=== PATIENT | male | born 1985 | race Two or more races ===

== ENCOUNTER 2020-02-09 05:08 | Inpatient (IN) | payer OTHER ==
[2020-02-09] VITALS (14 sets, daily range): BP systolic 112–158; BP diastolic 44–86
[~2020-02-09] VITALS: Ht 172.7 cm; Wt 104.3 kg
[2020-02-09] MEDS ORDERED: fentaNYL 100 mcg/2 mL IV ONE (06:29)
[2020-02-09] MEDS ORDERED: Midazolam 2mg/2ml Inj ONE (06:29)
[2020-02-09] MEDS ORDERED: Lidocaine 1% MPF 10mg/ml 5ml ONE (06:32)
[2020-02-09] MEDS ORDERED: Phenylephrine 10mg/ml Vial ONE (06:33)
[2020-02-09] MEDS ORDERED: Vancomycin 1gm vial IVPB ONE (06:36)
[2020-02-09] MEDS ORDERED: Thrombin 5000 units TOPIC ONE (06:37)
[2020-02-09] MEDS ORDERED: Gelfoam Size TOPIC ONE (06:37)
[2020-02-09] MEDS ORDERED: Rocuronium Bromide 50mg/5ml Inj IV ONE (06:38)
[2020-02-09] MEDS ORDERED: Succinylcholine 20mg/ml 10ml vial ONE (06:38)
[2020-02-09] MEDS ORDERED: Bacitracin 50000 Units Vial ONE (06:38)
[2020-02-09] MEDS ORDERED: NS Irrig 1000ml ONE (07:00)
[2020-02-09] MEDS ORDERED: ceFAZolin sod 2 GM in NS 55 ML IVPB ONE (07:00)
[2020-02-09] MEDS ORDERED: propofoL 1,000mg/100ml IV ONE (07:00)
[2020-02-09] MEDS ORDERED: Acetaminophen (Non formulary) 100 ML IV ONE (07:00)
[2020-02-09] MEDS ORDERED: LR 1000ml ONE (07:00)
[2020-02-09] MEDS ORDERED: Sterile Water Irrig 1000ml IRRIG ONE (07:00)
--- NOTE | 2020-02-09 07:18 | Pre-Procedure Note/Attestation ---
Pre-Procedure Note/Attestation Complete Prior to Procedure Planned Procedure: not applicable Procedure Narrative: cervical 56 artificial disc replacement Indications for Procedure Pre-Operative Diagnosis: C56 herniation Attestation I attest that I discussed the nature of the procedure; its benefits; risks and complications; and alternatives (and the risks and benefits of such alternatives ), prior to the procedure, with the patient (or the patient's legal termite control service representative). I attest that, if there was a reasonable possibility of needing a blood transfusion, the patient (or the patient's legal termite control service representative) was given the [facility] standardized written summary, pursuant to the [place] Blood Safety Act ([place] Health and Safety Code # 1645, as amended). I attest that I re-evaluated the patient just prior to the surgery and that there has been no change in the patient's H&P, except as documented below: Kilo Hurd MD Feb 09, 2020 07:18
--- NOTE | 2020-02-09 07:19 | Brief Operative Note ---
Immediate Post Operative Note Operative Note Chief Complaint: nekc Pre-op Diagnosis: C56 herniation Procedure: cervical 56 artificial disc replacement Post-op Diagnosis: same as pre-op Findings: consistent w/pre-op dx studies Surgeon: Vickey Senior Project Accountant: Jania Anesthesiologist: LUIS M Anesthesia: general Specimen: none Complications: none Condition: stable Fluids: IVF Estimated Blood Loss: minimal Drains: none Implant(s) used?: Yes - Prodisc c sz 5 Kilo Hurd MD Feb 09, 2020 07:19
[2020-02-09] MEDS ORDERED: HYDROmorphone 1mg/ml Carpuject IVP PRN (07:30)
[2020-02-09] MEDS ORDERED: Milk of Magnesia 30ml Ud ORAL PRN (07:30)
[2020-02-09] MEDS ORDERED: Naloxone 0.4mg/ml Inj IVP PRN (07:30)
[2020-02-09] MEDS ORDERED: Morphine Sulfate 4mg/ml Inj (IV USE ONLY) IV PRN ×2 (07:30)
[2020-02-09] MEDS ORDERED: Chloraseptic Spray 20mL Bottle ORAL PRN (07:30)
[2020-02-09] MEDS ORDERED: Morphine Sulfate 2mg/ml Inj(IV/IM USE ONLY) IV PRN (07:30)
[2020-02-09] MEDS ORDERED: HYDROcodone/Acetamin 7.5/325 tab ORAL PRN ×2 (07:30)
[2020-02-09] MEDS ORDERED: Metoclopramide 10mg/2ml Inj IVP PRN ×2 (07:30→08:30)
[2020-02-09] MEDS ORDERED: HYDROcodone/Acetamin 5/325 tab ORAL PRN (07:30)
[2020-02-09] MEDS ORDERED: Morphine Sulfate 10mg/ml Inj ONE (08:09)
[2020-02-09] MEDS ORDERED: Glycopyrrolate 0.2mg/ml 1ml Vial ONE (08:10)
[2020-02-09] MEDS ORDERED: Neostigmine 1mg/ml 10ml Inj ONE (08:10)
[2020-02-09] MEDS ORDERED: Sodium Chloride 10ml vial INJ ONE (08:10)
--- NOTE | 2020-02-09 08:27 | Anethesia Preoperative Eval ---
Anesthesia Pre-op PMH/ROS General Date of Evaluation: Feb 09, 2020 Time of Evaluation: 07:00 Anesthesiologist: Richie ASA Score: ASA 2 Mallampati Score Class I : Soft palate, uvula, fauces, pillars visible Class II: Soft palate, uvula, fauces visible Class III: Soft palate, base of uvula visible Class IV: Only hard plate visible Mallampati Classification: Class II Surgeon: Vickey Diagnosis: Cervical radiculopathy Surgical Procedure: ACDF Anesthesia History: none Family History: no anesthesia problems Allergies: Coded Allergies: No Known Allergies (Unverified , 02/08/20) Medications: see eMAR Patient NPO?: Yes Past Medical History Cardiovascular: Denies: HTN, CAD, OR, valve dz, arrhythmia, other Pulmonary: Denies: asthma, COPD, ROYA, other Gastrointestinal/Genitourinary: Reports: GERD - mild; Denies: CRI, ESRD, other Neurologic/Psychiatric: Reports: other - chronic pain; Denies: dementia, CVA, depression/anxiety, TIA Endocrine: Denies: DM, hypothyroidism, steroids, other HEENT: Denies: cataract (L), cataract (R), glaucoma, [place] other Hematology/Immune: Denies: anemia, DVT, bleeding disorder, other Musculoskeletal/Integumentary: Denies: OA, RA, DJD, DDD, edema, other PMH Narrative: as above PSxH Narrative: see H&P Anesthesia Pre-op Phys. Exam Physician Exam Last Vital Signs Date Time Temp Pulse Resp B/P (MAP) Pulse Ox O2 Delivery O2 Flow Rate FiO2 02/09/20 06:02 Room Air 02/09/20 05:39 97.7 76 18 158/75 (102) 98 Constitutional: NAD Neurologic: CN 2-12 intact Cardiovascular: RRR, no M/R/G Respiratory: CTA Gastrointestinal: S/NT/ND Airway Exam Mallampati Score: Class II MO: full Neck: stiff ROM: limited Teeth: intact Dentures: no upper, no lower Anesthesia Pre-op A/P Labs see chart Studies Pre-op Studies: EKG - NSR Risk Assessment & Plan Assessment: ASA 2 Plan: GA with ETT, neuromonitoring Status Change Before Surgery: No Pre-Antibiotics Drug: Ancef 2gr Given Within 1 Hr of Incision: Yes Time Given: 07:56 Felipe Quiroz MD Feb 09, 2020 08:27
[2020-02-09] MEDS ORDERED: DiphenhydrAMINE 50mg/ml Inj IVP PRN (08:30)
[2020-02-09] MEDS ORDERED: Ketorolac 30mg Inj IV PRN (08:30)
[2020-02-09] MEDS ORDERED: Meperidine 25mg/1ml Inj (FOR RIGORS ONLY) IV PRN (08:30)
[2020-02-09] MEDS ORDERED: LR 1000ml 1,000 ML IVLG SCH (08:30)
[2020-02-09] MEDS ORDERED: Docusate 100mg cap ORAL SCH (09:00)
--- NOTE | 2020-02-09 09:34 | Immediate Post-Op Evaluation ---
Immediate Post-Op Evalulation Immediate Post-Op Evalulation Procedure: ACDF C5-C6 Date of Evaluation: Feb 09, 2020 Time of Evaluation: 09:33 IV Fluids: 1000 Blood Products: none Estimated Blood Loss: 50 Urinary Output: 50 Blood Pressure Systolic: 125 Blood Pressure Diastolic: 53 Pulse Rate: 88 Respiratory Rate: 20 O2 Sat by Pulse Oximetry: 99 Temperature (Fahrenheit): 97.6 Pain Score (1-10): 1 Nausea: No Vomiting: No Complications none Patient Status: reacts, patent, extubated, none Hydration Status: adequate Felipe Quiroz MD Feb 09, 2020 09:34
--- NOTE | 2020-02-09 10:36 | 48 Hour Post Anesthesia Eval ---
Post Anesthesia Evaluation Procedure: ACDF C5-C6 Date of Evaluation: Feb 09, 2020 Time of Evaluation: 10:34 Blood Pressure Systolic: 137 0: 72 Pulse Rate: 74 Respiratory Rate: 18 Temperature (Fahrenheit): 97.6 O2 Sat by Pulse Oximetry: 98 Airway: patent Nausea: No Vomiting: No Pain Intensity: 3 Hydration Status: adequate Cardiopulmonary Status: stable Mental Status/LOC: patient returned to baseline Follow-up Care/Observations: n/a Post-Anesthesia Complications: none Follow-up care needed: ready to discharge Felipe Quiroz MD Feb 09, 2020 10:35
--- NOTE | 2020-02-09 11:04 | NUR ---
NURSE NOTES: Received report from Arabella RN, pt a/a/o laying in bed with no signs of distress or other issues. surgical dressing dry and intact. SCD's in place. RN will review orders and will carry on as indicated. call light within reach, bed in lowest position. side rales up x2. I will f/u as needed.
[2020-02-09] MEDS ORDERED: NS w/KCl 20mEq 1000ml 1,000 ML IV SCH (12:00)
--- NOTE | 2020-02-09 13:19 | Diagnostic Imaging Report ---
INDICATION: Pain, intraoperative TECHNIQUE: Intraoperative imaging Fluoroscopy time: 39.2 seconds Total dose: 0.62022 mGym2 Total number of images: 4 COMPARISON: None FINDINGS: Intraoperative images document surgical tool anterior to C5-6. Subsequent demonstrate placement of a disc prosthesis at C5-6. IMPRESSION: Intraoperative imaging, as described
--- NOTE | 2020-02-09 13:26 | NUR ---
NURSE NOTES: Patient voided 525 ml yellow urine. Will continue to monitor.
--- NOTE | 2020-02-09 13:30 | NUR ---
PT EVALUATION NOTE Patient seen for initial evaluation and treatment initiated. Patient instructed in cervical precautions and log roll technique for in/OOB. Patient able to perform bed mobility with supervision/SBA using proper log roll technique. Patient able to transfer with SBA, no AD, and able to ambulate 150 ft with SBA, no AD. Patient denied dizziness with all OOB activities. Patient will benefit from skilled inpatient PT intervention to increase postural stability for improved level of functional mobility and for adherence to cervical precautions. Anticipate discharge home once medically cleared by MD. No DME needs identified at this time. Addendum: 02/09/20 at 1354 by PAM ABDULLAHI PT Amended: Links added.
--- NOTE | 2020-02-09 13:30 | NUR ---
NURSE NOTES: called and left message to Dr. Hurd to give up date of the patient status as well as to inform that the patient requested to go home today. awaiting for response.
[2020-02-09] MEDS ORDERED: ceFAZolin sod 1 GM in D5W 55 ML IV SCH (14:00)
--- NOTE | 2020-02-09 15:03 | NUR ---
NURSE NOTES: Spoke to regarding patient and ok to discharge today. Order noted and carried out.
[2020-02-09] MEDS ORDERED: NORCO 10-325 T1 EACH ORAL (15:45)
--- NOTE | 2020-02-09 16:10 | NUR ---
NURSE NOTES: Patient discharged with family member in stable condition. Discharge instruction given to patient and verbalized understanding. Belonging and discharge prescription given to patient. IV and ID removed. Instructed to follow up with MD and verbalized understanding. Patient ambulated out with all personal belongings with steady gait.
--- NOTE | 2020-02-09 17:15 | Operative Note - Dictated ---
DATE OF OPERATION: 02/09/2020 SURGEON: Kilo Hurd MD, Orthopaedic Spine Surgeon. NURSERY HAND: Kinza ERLIN PREOPERATIVE DIAGNOSES: 1. Intractable neck pain. 2. Radiculopathy. 3. Herniation, C5-C6. 4. Neuroforaminal stenosis, C5-C6. 5. Stenosis. POSTOPERATIVE DIAGNOSES: 1. Intractable neck pain. 2. Radiculopathy. 3. Herniation, C5-C6. 4. Neuroforaminal stenosis, C5-C6. 5. Stenosis. PROCEDURE PERFORMED: 1. Anterior cervical diskectomy and artificial disc replacement of C5-C6 using a Synthes ProDisc C size 5 height. 2. Use of intraoperative microscope. 3. Motor-evoked potential monitoring. 4. Somatosensory-evoked potential monitoring. 5. Supervision and interpretation of fluoroscopy. COMPLICATIONS: None. ANESTHESIA: General. ESTIMATED BLOOD LOSS: Less than 100 mL. INDICATIONS FOR SURGERY: This patient is a 34-year-old male who has a history of . As a result of this, Trell sustained intractable neck pain, radiculopathy, herniation at C5-C6, neuroforaminal stenosis at C5-C6, and stenosis. We tried a course of conservative management, but despite this course, there was still a significant component of persistent, recalcitrant neck pain and arm pain. The MRI demonstrated significant neuroforaminal compromise secondary to disc herniations at C5-C6. We had a long discussion with Trell regarding the risks and benefits of surgery. Our discussion included, but was not limited to nonoperative management, chiropractic management, another epidural steroid injection as well as definitive management in the form of surgery. We recommended an anterior cervical diskectomy and artificial disc replacement of C5-C6 as final definitive management. We reviewed the risks and benefits of surgery with Trell. Our discussion included a comprehensive review of the clinical issues and the nature of the clinical decision. We reviewed the alternatives, including doing nothing. Trell elected to proceed accordingly with anterior cervical diskectomy and artificial disc replacement of C5-C6. We had a long discussion regarding the risks, alternatives, and benefits of surgery. Our description of the risks included a discussion in person as well as a signed consent, which detailed all pertinent risks from the procedure itself. Briefly, our discussion included but was not limited to infection, bleeding, pseudarthrosis, spinal cord injury, neurovascular injury, dural tear, CSF leak, neuropathy, paralysis, permanent weakness/drop foot/drop arm, paresthesias, blindness, palsy, and weakness. The patient understood there may be a need for a revision surgery or additional procedures. Approach-related complications including dysphonia, dysphagia, blindness, permanent vocal cord and neural injury, hematoma, swallowing and breathing difficulty. Medical complications were reviewed including liver, kidney, shock, cardiopulmonary failure, anesthesia complications including , swelling, damage to the musculature, larynx/voice injury or loss, esophagus/throat, trachea, blood vessels and muscles/muscular sprain and lungs/pneumothorax during this surgical procedure; injury to deeper structures may be temporary or permanent. After this review of risks, Trell understood these and elected to proceed. A written and verbal consent was given. We discussed the pros and cons of all the alternatives. We discussed the uncertainties associated with the decision. Afterwards, I assessed Trell's understanding and explored his preferences. All questions were answered and no guarantees were given. Medical clearance was obtained prior to surgery. INTRAOPERATIVE FINDINGS: At C5-C6, there was a large tear in the posterior longitudinal ligament, right-sided, approximately 10 degrees cephalad to caudad. This was probed with a Microsect 1-B curette and found to produce the meeting edge along the posterior limb of a herniated fragment, which was encroaching on the thecal sac, foramina, and spinal cord predominantly right-sided. This fragment was large, soft, and not calcified or crumbled and appeared acute in nature. Given that there was a tear in the posterior longitudinal ligament, I also felt that this could be attributed to a trauma. Given the fact that it was not calcified and the tissue itself was soft and spongy, I felt that it could be attributed to an acute trauma. A complete foraminotomy was performed on the right side and afterward the left side in standard fashion without any difficulty . The remainder of the disk itself was soft and spongy; not dehydrated, dried, or calcified. DESCRIPTION OF PROCEDURE: Under the benefit of general endotracheal anesthesia and with the assistance of the entire operative team, the patient was moved from the rsan antonio onto the operative table in the supine position. The head was secured and carefully positioned appropriately. Bilateral arms were secured with Gel Pads and foam, and all bony prominences were padded. For the bilateral lower extremities, SCD and WILIAN hose were placed for DVT prophylaxis. A surgical timeout was called, which corroborated our planned procedure of artificial disc replacement of cervical C5-C6 and anterior cervical discectomy and fusion of cervical C5-C6. Preoperative antibiotics were administered within 30 minutes of the incision for antibiotic prophylaxis. Using lateral fluoroscopic radiography, the operative levels were delineated. Next, the wound was prepped and draped with chlorhexidine and sterile drapes. An incision was based on lateral fluoroscopy and we centered our incision at the C5-C6 interspace and next, using a standard French-Obrien anterior-based approach, the incision was taken down through the skin and subcutaneous tissues until the vertebral bodies and their corresponding disc spaces were visualized. A needle was placed into the interspace to confirm placement of the operative interspace and we performed the remainder of procedure under microscopic visualization. Next, using bipolar and Bovie cautery to ensure meticulous hemostasis, the longus colli was mobilized bilaterally and retractors were placed deep to the longus colli bilaterally to address retraction. Next, we turned our attention to the radical anterior discectomy. This was initially performed at C5-C6 first by using a 15 blade scalpel followed by narrow pituitaries and a Microsect 5-B curette was used to denude the endplate of all cartilaginous tissue. Next, using a [employer] AM8 drill bit, the vertebral endplates were denuded of all residual cartilage in a ireh-kn-uhpu and cjtaz-vy-gywmv fashion, and ultimately the posterior uncinate joints bilaterally and posterior osteophytic lips and margins were carefully denuded until clear visualization of the posterior longitudinal ligament was possible. An endplate preparation was performed in the exact same fashion. Using an intervertebral sql report analyst, sequential distraction was obtained throughout the disc space. We saw a tear/rent in the PLL and this was carefully mobilized and dissected using a Microsect 1-B curette until we visualized a discrete disc herniation with compression of the spinal cord as well as neural foramina, which was right more than left sided. This neural foraminal compression was carefully resected using a Kerrison-1 and Kerrison-2 rongeurs until complete decompression of the spinal cord was visualized and complete decompression of the neural foramina and nerve root therein as well as the axilla and lateral margin of the nerve root was visualized and subsequently completely decompressed. The family was notified at one-hour intervals throughout the procedure to provide for consistent updates. We next turned our attention towards trialing our implant within the disc space. We initially tried size 5 and this ProDisc Cervical spacer fit well in regard to depth and width. This implant was opened and prepared. Next, under direct visualization, I confirmed excellent fit in respect to the anterior and posterior vertebral bodies, the uncinate joints, and in regard to toggle. Once satisfied with this placement on serial AP and lateral fluoroscopy, I turned my attention towards cutting our simón. These were cut in the bones using a reciprocating drill and afterwards all free fragments of bone were irrigated. Next, FloSeal was placed into the interspace, then removed in its entirety, and the implant was inserted using fluoroscopic guidance. Next, the Synthes ProDisc C size 5 ADR was then carefully advanced and secured into the intervertebral space under direct visualization and with supervision of AP and lateral fluoroscopic views. After a finger sweep, we confirmed removal of all sponges. The retractor was removed and we next turned our attention to meticulous hemostasis with FloSeal and bipolar cautery. After the sponge and needle count was again found to be correct with our second count, we next turned our attention to closure. The wound was again copiously irrigated with antibiotic-impregnated saline. Closure consisted of 4-0 clear nylon for the platysma, and 6-0 clear nylon for the superficial skin. Final skin closure and dressings consisted of Dermabond. Prior to final closure, a final radiograph was obtained, which demonstrated the hardware was intact with excellent position throughout. The patient tolerated the procedure well. The patient was carefully extubated after the conclusion of surgery. We discussed the findings of the surgery with the family upon completion of the case. At this point, the patient was transferred to the spine floor for further observation. Kilo Hurd M.D. DR: CORBY JOB#: [id number] CC:
== END 2020-02-09 16:10 | disposition home or self-care (01) | DRG 518 ==
LOC: SDSOVERFLO 05:08 → 3E 11:00
PROC: 0RR30JZ Replacement of Cervical Vertebral Disc with Synthetic Substitute, Open Approach (ICD-10-PCS; principal; 2020-02-09 07:00)
DX: M50.122 Cervical disc disorder at C5-C6 level with radiculopathy (principal); M48.02 Spinal stenosis, cervical region; V89.2XXS Person injured in unspecified motor-vehicle accident, traffic, sequela
CPT/HCPCS: 36415; 72040; 76000; 86850; 86900; 86901; 87081; J2180; J2250; J2370; J2405; J2710; U0002

== ENCOUNTER 2020-03-17 05:29 | Inpatient (IN) | payer OTHER ==
[~2020-03-17] VITALS: Ht 172.7 cm; Wt 102.1 kg
[2020-03-17] VITALS (13 sets, daily range): BP systolic 102–144; BP diastolic 62–90
[~2020-03-17 05:29] MED LIST: CARISOPRODOL350 MG ORAL; NORCO 10-325 T1 EACH ORAL
[2020-03-17] MEDS ORDERED: Vancomycin 1gm vial IVPB ONE (06:41)
[2020-03-17] MEDS ORDERED: Bacitracin 50000 Units Vial ONE (06:42)
[2020-03-17] MEDS ORDERED: Gelfoam Size TOPIC ONE (06:42)
[2020-03-17] MEDS ORDERED: Thrombin 5000 units TOPIC ONE (06:42)
[2020-03-17] MEDS ORDERED: Ropivacaine 5mg/ml Vial 30ml INJ ONE (06:42)
--- NOTE | 2020-03-17 06:44 | Anethesia Preoperative Eval ---
Anesthesia Pre-op PMH/ROS General Date of Evaluation: Mar 17, 2020 Time of Evaluation: 06:56 Anesthesiologist: Priscila ASA Score: ASA 2 Mallampati Score Class I : Soft palate, uvula, fauces, pillars visible Class II: Soft palate, uvula, fauces visible Class III: Soft palate, base of uvula visible Class IV: Only hard plate visible Mallampati Classification: Class II Surgeon: Vickey Diagnosis: Back Pain Surgical Procedure: L4-5 Microdiscectomy Anesthesia History: none Family History: no anesthesia problems Allergies: Coded Allergies: No Known Allergies (Unverified , 03/16/20) Medications: see eMAR Patient NPO?: Yes Past Medical History Gastrointestinal/Genitourinary: Reports: GERD Other: obesity - BMI 36 PSxH Narrative: Jan 2020, Cervical Sx Anesthesia Pre-op Phys. Exam Physician Exam Last Vital Signs Date Time Temp Pulse Resp B/P (MAP) Pulse Ox O2 Delivery O2 Flow Rate FiO2 03/17/20 06:11 Room Air 03/17/20 06:10 96.7 58 18 136/77 (96) 98 Constitutional: NAD Neurologic: CN 2-12 intact Cardiovascular: RRR Respiratory: CTA Gastrointestinal: S/NT/ND Airway Exam Mallampati Score: Class II MO: full ROM: limited Teeth: intact Anesthesia Pre-op A/P Risk Assessment & Plan Assessment: ASA 2 Plan: GA, SED, GlideScope Status Change Before Surgery: No Pre-Antibiotics Dru Grams Ancef IV Given Within 1 Hr of Incision: Yes Time Given: 07:16 Kvng Francois MD Mar 17, 2020 06:44
[2020-03-17] MEDS ORDERED: Meperidine 25mg/1ml Inj (FOR RIGORS ONLY) IV PRN (06:45)
[2020-03-17] MEDS ORDERED: Hydromorphone 0.5mg/0.5ml inj IVP PRN (06:45)
[2020-03-17] MEDS ORDERED: HYDROcodone/Acetamin 7.5/325 tab ORAL PRN ×3 (06:45→11:00)
[2020-03-17] MEDS ORDERED: LR 1000ml 1,000 ML IVLG SCH (06:45)
[2020-03-17] MEDS ORDERED: Atropine Sulfate 0.4mg/ml inj IVP PRN (06:45)
[2020-03-17] MEDS ORDERED: oxyCODONE HCL/Acetaminophen 5/325mg ORAL PRN (06:45)
[2020-03-17] MEDS ORDERED: DiphenhydrAMINE 50mg/ml Inj IVP PRN (06:45)
[2020-03-17] MEDS ORDERED: Midazolam 2mg/2ml Inj IVP PRN (06:45)
[2020-03-17] MEDS ORDERED: Ketorolac 30mg Inj IV PRN ×2 (06:45)
[2020-03-17] MEDS ORDERED: fentaNYL 100 mcg/2 mL IV PRN (06:45)
[2020-03-17] MEDS ORDERED: Metoclopramide 10mg/2ml Inj IVP PRN ×2 (06:45→11:00)
[2020-03-17] MEDS ORDERED: LORazepam Inj 2mg/ml 1ml IV PRN (06:45)
[2020-03-17] MEDS ORDERED: HYDROcodone/Acetamin 5/325 tab ORAL PRN ×2 (06:45→11:00)
[2020-03-17] MEDS ORDERED: Acetaminophen (Non formulary) 100 ML IV ONE (06:45)
[2020-03-17] MEDS ORDERED: Labetalol 5mg/ml 20ml vial IV PRN (06:45)
[2020-03-17] MEDS ORDERED: Rocuronium Bromide 50mg/5ml Inj IV ONE (06:50)
[2020-03-17] MEDS ORDERED: Lidocaine 1% MPF 10mg/ml 5ml ONE (06:59)
[2020-03-17] MEDS ORDERED: Sodium Chloride 10ml vial INJ ONE (06:59)
[2020-03-17] MEDS ORDERED: NS Irrig 1000ml ONE (07:00)
[2020-03-17] MEDS ORDERED: Sterile Water Irrig 1000ml IRRIG ONE (07:00)
[2020-03-17] MEDS ORDERED: LR 1000ml ONE (07:00)
[2020-03-17] MEDS ORDERED: propofoL 1,000mg/100ml IV ONE (07:00)
[2020-03-17] MEDS ORDERED: ceFAZolin sod 2 GM in NS 55 ML IVPB ONE (07:00)
[2020-03-17] MEDS ORDERED: Lidocaine 1% Plain 30 ml INJ ONE (07:04)
--- NOTE | 2020-03-17 07:15 | Pre-Procedure Note/Attestation ---
Pre-Procedure Note/Attestation Complete Prior to Procedure Planned Procedure: not applicable Procedure Narrative: Hemilaminotomy foraminotomy Lumbar 5-S1 and left sided microdiscectomy Indications for Procedure Pre-Operative Diagnosis: L5S1 herniation Attestation I attest that I discussed the nature of the procedure; its benefits; risks and complications; and alternatives (and the risks and benefits of such alternatives), prior to the procedure, with the patient (or the patient's legal volunteer patient representative). I attest that, if there was a reasonable possibility of needing a blood transfusion, the patient (or the patient's legal volunteer patient representative) was given the [facility] standardized written summary, pursuant to the [place] Blood Safety Act ([place] Health and Safety Code # 1645, as amended). I attest that I re-evaluated the patient just prior to the surgery and that there has been no change in the patient's H&P, except as documented below: Kilo Hurd MD Mar 17, 2020 07:15
--- NOTE | 2020-03-17 07:16 | Brief Operative Note ---
Immediate Post Operative Note Operative Note Chief Complaint: low back pain and leg pain Pre-op Diagnosis: L5S1 herniation Procedure: Hemilaminotomy foraminotomy Lumbar 5-S1 and left sided microdiscectomy Post-op Diagnosis: same as pre-op Findings: consistent w/pre-op dx studies Surgeon: Vickey Social Security Assessor: Jania Anesthesia: general Specimen: none Complications: none Condition: stable Fluids: IVF Estimated Blood Loss: minimal Drains: none Implant(s) used?: No Kilo Hurd MD Mar 17, 2020 07:16
--- NOTE | 2020-03-17 08:08 | Immediate Post-Op Evaluation ---
Immediate Post-Op Evalulation Immediate Post-Op Evalulation Procedure: L4-5 Microdiscectomy Date of Evaluation: Mar 17, 2020 Time of Evaluation: 09:14 IV Fluids: 800 LR Blood Products: 0 Estimated Blood Loss: 25 Urinary Output: 200 Blood Pressure Systolic: 144 Blood Pressure Diastolic: 71 Pulse Rate: 81 Respiratory Rate: 18 O2 Sat by Pulse Oximetry: 100 Temperature (Fahrenheit): 97.1 Pain Score (1-10): 2 Nausea: No Vomiting: No Complications 0 Patient Status: awake, reacts, patent, extubated, none Hydration Status: adequate Dru Grams Ancef IV Given Within 1 Hr of Incision: Yes Time Given: 07:16 Kvng Francois MD Mar 17, 2020 08:08
--- NOTE | 2020-03-17 08:09 | 48 Hour Post Anesthesia Eval ---
Post Anesthesia Evaluation Procedure: L4-5 Microdiscectomy Date of Evaluation: Mar 17, 2020 Time of Evaluation: 11:23 Blood Pressure Systolic: 126 0: 72 Pulse Rate: 73 Respiratory Rate: 18 Temperature (Fahrenheit): 98 O2 Sat by Pulse Oximetry: 99 Airway: patent Nausea: No Vomiting: No Pain Intensity: 2 Hydration Status: adequate Cardiopulmonary Status: Stable Follow-up Care/Observations: 0 Post-Anesthesia Complications: 0 Follow-up care needed: ready to discharge Kvng Francois MD Mar 17, 2020 08:09
[2020-03-17] MEDS ORDERED: Neostigmine 1mg/ml 10ml Inj ONE (08:22)
[2020-03-17] MEDS ORDERED: Glycopyrrolate 0.2mg/ml 1ml Vial ONE (08:22)
[2020-03-17] MEDS ORDERED: Naloxone 0.4mg/ml Inj IVP PRN (11:00)
[2020-03-17] MEDS ORDERED: Morphine Sulfate 2mg/ml Inj(IV/IM USE ONLY) IV PRN (11:00)
[2020-03-17] MEDS ORDERED: HYDROmorphone 1mg/ml Carpuject IVP PRN (11:00)
[2020-03-17] MEDS ORDERED: Morphine Sulfate 4mg/ml Inj (IV USE ONLY) IV PRN ×2 (11:00)
[2020-03-17] MEDS ORDERED: Milk of Magnesia 30ml Ud ORAL PRN (11:00)
[2020-03-17] MEDS ORDERED: NS w/KCl 20mEq 1000ml 1,000 ML IV SCH (11:30)
[2020-03-17] MEDS ORDERED: Chloraseptic Spray 20mL Bottle ORAL PRN (11:30)
--- NOTE | 2020-03-17 13:15 | Operative Note - Dictated ---
DATE OF OPERATION: 03/17/2020 SURGEON: Kilo Hurd MD, Orthopaedic Spine Surgeon. NIPPING MACHINE OPERATOR SURGEON: ERLIN Madera. ANESTHESIOLOGIST: Kvng Francois MD. ANESTHESIA: General endotracheal anesthesia. PREOPERATIVE DIAGNOSES: 1. Intractable back pain. 2. Intractable leg pain. 3. Worsening radiculopathy. 4. Weakness. 5. Herniated nucleus pulposus, L5-S1. 6. Neural foraminal stenosis, L5-S1. POSTOPERATIVE DIAGNOSES: 1. Intractable back pain. 2. Intractable leg pain. 3. Worsening radiculopathy. 4. Weakness. 5. Herniated nucleus pulposus, L5-S1. 6. Neural foraminal stenosis, L5-S1. PROCEDURES PERFORMED: 1. Left-sided L5-S1 microdiscectomy. 2. L5-S1 hemilaminotomy, foraminotomy and medial facetectomy. 3. L5-S1 neural foraminotomy through a transpedicular intraforaminal approach. 4. Use of intraoperative microscope. 5. Supervision and interpretation of intraoperative fluoroscopy. 6. Supervision and interpretation of somatosensory-evoked potential and free running EMG monitoring. ESTIMATED BLOOD LOSS: Less than 100 mL. COMPLICATIONS: None. INDICATIONS FOR THE PROCEDURE: The patient presents for intractable back pain and radiculopathy. The patient tried and failed a prolonged course of conservative management, including but not limited to chiropractic therapy, physical therapy, nonsteroidal anti-inflammatory drugs, medication, ice packs as well as epidural injection. Despite these therapies, the patient still developed recalcitrant pain and elected for definitive management in the form of left-sided L5-S1 microdiscectomy, L5-S1 hemilaminotomy, foraminotomy and medial facetectomy, and L5-S1 neural foraminotomy through a transpedicular intraforaminal approach. CONSENT: We had a long discussion with the patient regarding definitive surgical treatment options. The patient's MRI demonstrated herniated nucleus pulposus, L5-S1 and neural foraminal stenosis, L5-S1, and as a result, I felt the patient would benefit from the discectomy as well as neural foraminotomy at this level. We had a long discussion with the patient regarding the risks, alternatives, and benefits of surgery. Our description of the risks included a discussion in person as well as a signed consent which detailed all pertinent risks and the procedure itself. Briefly, our discussion included but was not limited to infection, bleeding, pseudarthrosis, spinal cord injury, neurovascular injury, dural tear, CSF leak, neuropathy, paralysis, permanent weakness/drop foot, paresthesias blindness, palsy and weakness. The patient understood there may be a need for revision surgery or additional procedures. Approach related complications including dysphonia, dysphagia, blindness, permanent vocal cord and neural injury, hematoma, swallowing and breathing difficulty. Medical complications including liver, kidney, shock, and cardiopulmonary failure. Anesthesia complications including , swelling. Damage to the musculature, larynx (voice injury or loss),esophagus (throat), trachea, blood vessels and muscles (muscular sprain) and lungs (pneumothorax) during this surgical procedure. Injury to deeper structures may be temporary or permanent. The patient understood these and elected to proceed. A written and verbal consent was given. We discussed the pros and cons of all the alternatives. We discussed the uncertainties associated with the decision. Afterwards I assessed the patients understanding and explored their preferences. All questions were answered and no guarantees were given. Medical clearance was obtained prior to surgery INTRAOPERATIVE FINDINGS: L5-S1; after hemilaminotomy and foraminotomy was performed, a thorough decompression throughout the neural foramina of L5 and S1 was performed. We turned our attention towards investigation of the herniation and the tear itself. I noticed after retraction of the thecal sac that there was a broad-based fragment of nuclear tissue, which had emanated from a left-sided tear through the posterior longitudinal ligament. The tear itself was oriented 10 degrees cephalad to caudad. The edges of the tear appeared and freshly torn. These were probed with a Microsect curette and the nuclear fragments underneath the tissue was resected with a combination of Childress pituitaries and arthroscopic pituitaries. Afterwards, the disc was thoroughly irrigated to retrieve any of loose fragments of nuclear tissue. The entire disc and it's stalk was resected. I should note the disc itself was soft and spongy, was not desiccated or dehydrated or crumbled. This we tend to see a degenerated fragment leading me to believe this was more acute and traumatic in nature. DESCRIPTION OF PROCEDURE: Under the benefit of general endotracheal anesthesia and with the assistance of the entire operative team, the patient was moved from the [facility] onto the operative table in the prone position on a Lonnie frame. The head was secured and positioned appropriately. Bilateral arms were secured with Gel pads and foam and all bony prominences were padded. The bilateral lower extremity SCD and WILIAN hose were placed for DVT prophylaxis. A surgical timeout was called, which corroborated our planned procedure. Preoperative Antibiotics were administered within 30 minutes of the incision for prophylaxis. Decadron was given for preoperative steroids. Using lateral radiography, the operative levels were delineated. An incision was marked based on our interpretation of lateral radiography and afterwards the body was prepped and draped in the usual sterile manner. The family was notified that we were ready to commence surgery and were called in the waiting room hourly for updates An incision was based on our lateral fluoroscopic image to center the incision at the L5-S1 interspace. The wound was prepped and draped in the usual sterile fashion. Using a scalpel a midline incision was taken down through the skin and subcutaneous tissues until the overlying hemilamina of L5-S1 were visualized. Next, using meticulous hemostasis, hemilaminotomies were dissected and retractors were placed. Using a Gentry dental, we confirmed placement at the L5-S1 interspace. We next turned our attention to our decompression. A standard hemilaminotomy foraminotomy medial facetectomy was performed at each level in standard fashion using a Midas-Derick type AM8 drill bit, straight and angled curettage, and Kerr[place] 4 rongeurs until the lateral thecal sac margin and traversing nerve root was visualized. All remainders of the ligamentum flavum and lateral bony margins were resected in total with angled curettage and Kerr[place] 4 rongeurs until the lateral thecal sac margin and traversing nerve root was visualized and decompressed. We next turned our attention toward our L5-S1 microdiscectomy on the left side. A [place] 4 was used to gently mobilize the thecal sac medially and this was held retracted with a bayonetted nerve root retractor. It was at this point that we noted a large broad-based disc protrusion with encroachment dorsally on the thecal sac neural foraminal contents. A bayonet and nerve root retractor was then placed carefully to retract the thecal sac and a discectomy was performed using a combination of a long handled 15 blade scalpel, downgoing and straight pituitaries and downgoing curettage. Afterward the disc space was irrigated twice with 20 mL of antibiotic-impregnated saline. All loose and free-floating disc fragments were carefully resected with a narrow pituitary. Having been satisfied with our decompression after our discectomy of all neural elements, we next turned our attention to our neural foraminoplasty/foraminotomy. This was performed through a transpedicular intraforaminal approach using an access probe followed by a neuro check device, which confirmed ventral placement of our nerve root. Once we confirmed we were safe, we next turned our attention towards placement of our size 10 file under direct microscopic visualization and under lateral fluoroscopy. Using pre and post reciprocation imaging, we were able to visualize our direct decompression given the reciprocation allowed for re-creation of the neural foraminal arch at L5-S1. Afterwards, hemostasis was obtained with 60 mL of antibiotic-impregnated saline followed by FloSeal and Gelfoam. After sponge and needle count were found to be correct, we next turned our attention to closure. Closure consisted of 1-0 Vicryl in standard interrupted fashion. Zosyn was placed deep to the fascia and superficial to the fascia for antibiotic prophylaxis. Skin closure was performed with 2-0 Vicryl in interrupted fashion followed by a running Monocryl for the skin. Final dressings consisted of Dermabond for the superficial skin, Telfa and Tegaderm. The patient tolerated the procedure well. The patient was extubated after the conclusion of surgery without incident. We discussed the findings of the surgery with the family upon completion of the case. At this point the patient will be transferred to the spine floor for further observation. Kilo Hurd M.D. DR: CORBY JOB#: [id number] CC:
[2020-03-17] MEDS ORDERED: ceFAZolin sod 1 GM in D5W 55 ML IV SCH (15:00)
--- NOTE | 2020-03-17 16:30 | Diagnostic Imaging Report ---
INDICATION: Pain, intraoperative TECHNIQUE: Intraoperative imaging Fluoroscopy time: 39.2 seconds Total dose: 0.84719 mGym2 Total number of images: one COMPARISON: None FINDINGS: tool projects posterior to the L5-S1 disc. IMPRESSION: Intraoperative imaging, as described
[2020-03-17] MEDS ORDERED: Docusate Sod/Senna tab ORAL SCH (18:00)
[2020-03-17] MEDS ORDERED: Docusate 100mg cap ORAL SCH (18:00)
--- NOTE | 2020-03-21 10:20 | Discharge Summary ---
Discharge Summary Hospital Course Date of Admission Mar 17, 2020 at 05:29 Date of Discharge Mar 17, 2020 at 14:07 Admitting Diagnosis L5 S1 herniation Reason for Hospitalization: elective surgery HPI Trlel Rahman is a 34 year old male who was admitted on Mar 17, 2020 at 05:29 for Herniated Nucleus Pulposus,Pain, Radiculopathy Procedures s/p 03/17/[address] Hurd 1. Left-sided L5-S1 microdiscectomy. 2. L5-S1 hemilaminotomy, foraminotomy and medial facetectomy. 3. L5-S1 neural foraminotomy through a transpedicular intraforaminal approach. 4. Use of intraoperative microscope. 5. Supervision and interpretation of intraoperative fluoroscopy. 6. Supervision and interpretation of somatosensory-evoked potential and free running EMG monitoring. Hospital Course status post surgery course of recovery uneventful initially IV fluids s/p perioperative antibiotic and steroid neurovascular status closely monitored, remained stable incision clean, dry and intact pain management was addressed ; pain was controlled remained hemodynamically stable ambulated with PT fall precautions maintained; safe for ambulation use of incentive spirometry was encouraged while in the bed tolerated diet , IV fluids discontinued GI prophylaxis provided antiemetics were on board as needed voided freely bowel softener started patient was stable for discharge discharge instructions provided follow up with surgeon in the office as advised FINAL DIAGNOSES 1. Intractable back pain. 2. Intractable leg pain. 3. Worsening radiculopathy. 4. Weakness. 5. Herniated nucleus pulposus, L5-S1. 6. Neural foraminal stenosis, L5-S1. 7. s/p Hemilaminotomy foraminotomy Lumbar L 5-S1 and left sided microdiscectomy Discharge Medications Continued Medications: Carisoprodol* (Carisoprodol*) 350 Mg Tablet 350 MG ORAL THREE TIMES A DAY for PAIN, TAB Hydrocodone Bit/Acetaminophen 10-325* ([place] 10-325*) 1 Each Tablet 1 TAB ORAL Q8HR PRN for For Pain, #90 TAB 0 Refills PRN PAIN Discharge Condition Upon Discharge: stable Discharge Vital Signs Last Vital Signs Date Time Temp Pulse Resp B/P (MAP) Pulse Ox O2 Delivery O2 Flow Rate FiO2 03/17/20 13:00 97.5 63 18 102/74 (83) 96 03/17/20 09:50 Room Air 03/17/20 09:25 6 Discharge Disposition Patient was discharged home Discharge Instructions Discharge Instructions Special Instructions I have been assigned to complete a D/C Summary on this account. I was not involved in the patient management Shannon Roa NP Mar 21, 2020 10:20
== END 2020-03-17 14:07 | disposition home or self-care (01) | DRG 520 ==
LOC: SDSOVERFLO 05:29 → 3E 10:00
PROC: 0ST40ZZ Resection of Lumbosacral Disc, Open Approach (ICD-10-PCS; principal; 2020-03-17 07:00)
PROC: 01NB0ZZ Release Lumbar Nerve, Open Approach (ICD-10-PCS; principal; 2020-03-17 07:00)
PROC: 01NR0ZZ Release Sacral Nerve, Open Approach (ICD-10-PCS; principal; 2020-03-17 07:00)
DX: M51.17 Intervertebral disc disorders with radiculopathy, lumbosacral region (principal); M48.07 Spinal stenosis, lumbosacral region
CPT/HCPCS: 36415; 72020; 76000; 86850; 86900; 86901; 87081; 94003; 94150; J2405; J2710